=== PATIENT | male | born 1975 ===

== ENCOUNTER 2016-12-19 10:07 | Emergency (ER) | payer MEDICAID ==
--- NOTE | 2016-12-19 10:47 | C.PDOC ---
History Of Present Illness 41 yo male come in for evaluation of cold symptoms for past 2 weeks. Pt reports , (+) nasal congestion, cough worse over past few days. " Today, was cough so hard, tried to sit down and passed out from cough". At present time, noted dry spasmatic cough. Otherwise, pt denies high fever, chills, dizziness, denies worse headache of life, drooling, dysphagia,wheezing, palpitation, SOB, abd. pain, N/V/D, back pain. At present time, not in resp. distress. Time Seen by Provider: 12/19/16 10:25 Chief Complaint (Nursing): Chest Pain History Per: Patient Past Medical History Reviewed: Historical Data, Nursing Documentation, Vital Signs Vital Signs: Last Vital Signs Temp 97.6 F 12/19/16 10:15 Pulse 75 12/19/16 13:07 Resp 18 12/19/16 13:07 BP 117/64 12/19/16 13:07 Pulse Ox 99 12/19/16 13:07 Family History: States: No Known Family Hx - Social History Hx Tobacco Use: Yes Hx Alcohol Use: Yes Hx Substance Use: Yes Review Of Systems Except As Marked, All Systems Reviewed And Found Negative. Constitutional: Negative for: Fever, Chills ENT: Positive for: Nose Discharge, Nose Congestion. Negative for: Ear Discharge Cardiovascular: Negative for: Edema, Light Headedness Respiratory: Positive for: Cough, Shortness of Breath. Negative for: SOB with Excertion, Pleuritic Pain, Sputum, Wheezing Gastrointestinal: Negative for: Nausea, Vomiting, Abdominal Pain, Diarrhea Genitourinary: Negative for: Incontinence Skin: Negative for: Rash Neurological: Positive for: Altered Mental Status. Negative for: Weakness, Numbness, Headache, Dizziness Physical Exam - Physical Exam Appears: Well, Non-toxic, No Acute Distress Skin: Normal Color, Warm, Dry, No Rash Head: Normacephalic, Abrasion (forehead) Eye(s): bilateral: PERRL Nose: No Flaring, Discharge (B/L congestion with clear rhinorhea) Oral Mucosa: Moist Throat: Erythema (midl B/L), No Exudate, No Drooling Neck: Supple Cardiovascular: Rhythm Regular, No Friction Rub, No Murmur, No JVD Respiratory: No Decreased Breath Sounds, No Accessory Muscle Use, No Rales, No Rhonchi, No Stridor, Wheezing (scattered Right base) Gastrointestinal/Abdominal: Soft, No Tenderness, No Distention, No Guarding Extremity: Normal ROM, No Pedal Edema, No Deformity Neurological/Psych: Oriented x3, Normal Speech ED Course And Treatment - Laboratory Results Result Diagrams: 12/19/16 10:56 12/19/16 10:56 Lab Interpretation: No Acute Changes ECG: Interpreted By Me, Viewed By Me (and ED attending) ECG Interpretation: Normal Interpretation Of ECG: SR@72/min, NAD, no acute T wave or ST-T changes. - Radiology CXR: Interpreted by Me, Viewed By Me CXR Interpretation: Yes: No Acute Disease Progress Note: On re-eavluation, pt reports " feeling better". Afebrile, hemodynamicaly stable. Not in resp. distress. PulseOx 98% RA. ENT: no acute findings. uvula midline, no edema. Neck: Supple, (-) JVD. Lungs: CTA B/L, Bs equal B/L. CVS: (+)S1S2, reg. Abd: benign. Neuorlogicaly intact. Blood work review and appears without acute abnormalities. CXR (-) acute infiltrate. Pt has clinical findings c/w acute bronchitis, smoker. Pt advsied on smoking cessation. Advised on course of ds. ref. to f/u with PMD in 2-3 days for re- eavl. return if any new changes. Disposition Counseled Patient/Family Regarding: Studies Performed, Diagnosis, Need For Followup, Rx Given - Disposition Referrals: Shaik Beckett MD [Staff Provider] - Disposition: HOME/ ROUTINE Disposition Time: 12:40 Condition: STABLE Additional Instructions: Encourage fluids Take medication as prescribed Follow up with PMD in 2-3 days for re-evaluation. Return to Ed if any worsening or new changes. Prescriptions: Albuterol HFA [Ventolin HFA 90 mcg/actuation (8 g)] 1 puff IH Q6 #1 inhaler Cefdinir [Omnicef] 300 mg PO BID #14 cap Prednisone [Deltasone] 40 mg PO DAILY #6 tablet Promethazine/Codeine [Phenergan/Codeine Oral Syrup] 5 ml PO Q8 #60 ml Instructions: How to Stop Smoking (ED), Acute Bronchitis (ED), Cocaine Abuse ( ED) Forms: [employer] ([place] Citizen), Work Excuse - Clinical Impression Clinical Impression: Bronchitis, Smoker, Encounter for smoking cessation counseling, Cocaine abuse
[2016-12-19] MEDS ORDERED: Sodium Chloride 0.9% 1,000 ML IV ONE (10:49)
[2016-12-19] MEDS ORDERED: MethylPREDNISolone 40 mg Vial IVP STA (10:49)
[2016-12-19] MEDS ORDERED: Promethazine/Cod 6.25mg-10mg/5ml Syr UD PO STA (10:50)
[2016-12-19] MEDS ORDERED: DiphenhydrAMINE 50 mg/ml Inj IVP STA (10:50)
[2016-12-19] MEDS ORDERED: Albuterol-Ipratrop 3 mg / 0.5 (3 ml) UD IH STA ×2 (10:50→12:11)
[2016-12-19 10:57] VITALS: TEMP 97.6
[2016-12-19 11:02] LABS: BASO # 0.1 K/uL (0.0-0.2); EOS # 0.5 K/uL (0.0-0.7); EOS % 4.5 % (0.0-4.0); HEMATOCRIT 43.3 % (35.0-51.0); LYMPH # 2.7 K/uL (1.0-4.3); LYMPH % 23.7 % (20.0-40.0); MEAN CELL VOLUME 90.7 fL (80.0-94.0); MEAN CORPUSCULAR HEMOGLOBIN 31.1 pg (27.0-31.0); MEAN CORPUSCULAR HGB CONC 34.3 g/dL (33.0-37.0); MEAN PLATELET VOLUME 7.9 fL (7.2-11.7); MONO # 1.3 K/uL (0.0-0.8); MONO % 11.1 % (0.0-10.0); WHITE BLOOD COUNT 11.5 K/uL (4.8-10.8)
[2016-12-19 11:08] LABS: CHLORIDE 105 mmol/L (98-107); SODIUM 141 mmol/L (132-148)
[2016-12-19 11:09] LABS: POTASSIUM 3.9 mmol/L (3.6-5.2)
[2016-12-19 11:11] LABS: CARBON DIOXIDE 24 mmol/L (22-30); GFR AFRICAN-AMERICAN > 60
[2016-12-19 11:12] LABS: BLOOD UREA NITROGEN 13 mg/dL (9-20); GLUCOSE,RANDOM 125 mg/dL (75-110)
[2016-12-19 12:29] LABS: RBC URINE < 1 /hpf (0-3); URINE BACTERIA RARE (<OCC); URINE BILIRUBIN NEGATIVE (NEGATIVE); URINE BLOOD NEGATIVE (NEGATIVE); URINE COLOR Yellow (YELLOW); URINE GLUCOSE (UA) NORMAL (Normal); URINE KETONE NEGATIVE (NEGATIVE); URINE LEUKOCYTE ESTERASE NEG Leu/uL (Negative); URINE PROTEIN NEGATIVE (NEGATIVE); URINE UROBILINOGEN NORMAL mg/dL (0.2-1.0); WBC URINE < 1 /hpf (0-5)
[2016-12-19] MEDS ORDERED: Albuterol-Ipratrop 3 mg / 0.5 (3 ml) UD ONE (12:31)
[2016-12-19 13:08] VITALS: BP 117/64; PULSE 75; RESP 18; O2SAT 99
--- NOTE | 2016-12-19 15:33 | RAD ---
HISTORY: SOB COMPARISON: No prior. TECHNIQUE: Chest PA and lateral FINDINGS: LUNGS: No active pulmonary disease. PLEURA: No significant pleural effusion identified. No pneumothorax apparent. CARDIOVASCULAR: Normal. OSSEOUS STRUCTURES: No significant abnormalities. VISUALIZED UPPER ABDOMEN: Normal. OTHER FINDINGS: None. IMPRESSION: No active disease. Concordant results with the preliminary interpretation rendered by the emergency department physician procedure.
--- NOTE | 2016-12-20 13:21 | CARD ---
APPROVED REPORT EKG Measurement Heart [id number] <Conclusion> Normal sinus rhythm with sinus arrhythmia Normal ECG
== END 2016-12-19 13:32 | disposition home or self-care (01) ==
LOC: C.ER 10:07
DX: J40 Bronchitis, not specified as acute or chronic (principal); F14.10 Cocaine abuse, uncomplicated; Z71.6 Tobacco abuse counseling; Z72.0 Tobacco use
CPT/HCPCS: 71020; 80048; 80324; 80345; 80346; 80349; 80353; 80358; 80361; 81001; 82948; 83992; 84484; 85025; 87040; 93005; 94640; 96361; 96374; 96375; 99285; J1200; J2920; J7040